=== PATIENT | female | born 1995 ===

== ENCOUNTER 2022-08-11 07:13 | Outpatient (CLI) | payer OTHER ==
[~2022-08-11 07:13] MED LIST: DOCUSATE SODIU100 MG PO; Mylicon 125MG PO; OXYC1TAB9 PO
== END 2022-08-11 07:14 | disposition home or self-care (01) ==
LOC: LAB 07:13
PROVIDERS: ATTEND Obstetrics & Gynecology
DX: N91.2 Amenorrhea, unspecified (principal); E78.5 Hyperlipidemia, unspecified; E34.9 Endocrine disorder, unspecified; N95.1 Menopausal and female climacteric states; E23.6 Other disorders of pituitary gland; R19.00 Intra-abdominal and pelvic swelling, mass and lump, unspecified site; N39.0 Urinary tract infection, site not specified; E55.9 Vitamin D deficiency, unspecified; N73.9 Female pelvic inflammatory disease, unspecified; A60.04 Herpesviral vulvovaginitis; Z34.90 Encounter for supervision of normal pregnancy, unspecified, unspecified trimester

== ENCOUNTER 2022-09-06 15:11 | Emergency (ER) | payer OTHER ==
[~2022-09-06] VITALS: Ht 170.2 cm; Wt 72.6 kg
== END 2022-09-06 21:21 | disposition home or self-care (01) ==
LOC: ER 15:11
DX: J06.9 Acute upper respiratory infection, unspecified (principal); Z20.828 Contact with and (suspected) exposure to other viral communicable diseases